=== PATIENT | female | born 1990 | race Caucasian/White ===

== ENCOUNTER 2016-08-20 20:20 | Emergency (ER) | payer OTHER ==
[2016-08-20] MEDS ORDERED: ALBUTEROL SULFATE 2.5 MG/0.5 ML VIAL.NEB IH ONE ×2 (20:51→21:03)
--- NOTE | 2016-08-20 20:58 | ERNOTE ---
Date of Service: 08/20/16 Time Seen by Provider: 08/20/16 20:46 Stated Complaint: SORE THROAT, COUGH Presenting Symptoms:: cough, sore throat, runny nose, fever Source: patient Exam Limitations: no limitations Immunizations: IMMUNIZATION HX Immunizations Up to Date Yes History of Influenza Vaccine No Hx Pneumococcal Vaccination No Allergies/Adverse Reactions: Allergies No Known Allergies Allergy (Verified 08/20/16 20:38) Home Medications: HOME MEDICATIONS FLUoxetine HCL [Prozac] 20 mg PO DAILY 05/21/16 [Last Taken Unknown] LORazepam [Ativan] 0.5 mg PO TID PRN 05/21/16 [Last Taken Unknown] risperiDONE [Risperdal] 1 mg PO BID 05/21/16 [Last Taken Unknown] Albuterol Sulfate [Ventolin Hfa] 2 puff IH Q4H PRN #1 inhaler 08/20/16 [Last Taken Unknown] Doxycycline Monohydrate 100 mg PO BID #20 tablet 08/20/16 [Last Taken Unknown] traZODone HCL [Desyrel] 100 mg PO HS 08/20/16 [Last Taken Unknown] - History of Present Ilness Narrative: Pt. comes in with c/o cough, fever, rhinorrhea, sinus congestion, and chest congestion. Pt. denies any NVD. Pt. does state that she was exposed to pneumonia a week ago by her grandmother and her symptoms started two days ago. Modifying Factors - Improves: Reports: nothing Modifying Factors - Worsens: Reports: nothing Review of Systems - Review of Systems Constitutional: Present: fever, fatigue, malaise. Absent: recent illness EYE: Present: no symptoms reported ENT: Present: ear pain, nose congestion, nasal drainage, sore throat, throat swelling. Absent: nose pain Respiratory: Present: shortness of breath, cough, wheezing Cardiology: Present: no symptoms reported. Absent: chest pain, palpitations, edema Gastrointestinal/Abdominal: Present: no symptoms reported. Absent: nausea, vomiting, diarrhea Genitourinary: Present: no symptoms reported. Absent: frequency, pain, dysuria , decreased urinary output Musculoskeletal: Present: no symptoms reported. Absent: back pain, joint pain Skin: Present: no symptoms reported Neurological: Present: no symptoms reported. Absent: headache, dizziness/light- headedness All Other Systems: All systems neg except as marked - Patient's Past Medical History Patient History - Medical: Anxiety, Depression Patient History - Cancer: No Hx of Cancer Patient History - Surgical Procedures: Appendectomy, Cholecystectomy LMP (females 10-50): unknown - Social History Living Situations: home Smoking Status: Never smoker Alcohol Use: rarely Drug Use: none Physical Exam - Physical Exam General Appearance: Present: wd/wn, alert, no apparent distress Eye Exam: Normal inspection: bilateral, PERRL: bilateral, EOMI: bilateral Ears, Nose, Throat: Present: hearing grossly normal, nasal congestion, sinus pain/drainage, pharyngeal erythema, tonsillar exudate - clear. Absent: abnormal TM (R), abnormal TM (L) Neck: Present: normal inspection, nontender. Absent: lymphadenopathy (R), lymphadenopathy (L) Respiratory: Present: no respiratory distress, no accessory muscle use, chest nontender, decreased breath sounds, wheezing - BUL exp. Absent: crackles, rales , rhonchi, stridor Cardiovascular/Chest: Present: regular rate, rhythm, no murmur, normal peripheral pulses Gastrointestinal/Abdominal: Present: normal bowel sounds, nontender Back Exam: Present: normal inspection Extremity Exam: Present: normal inspection Neurological Exam: Present: alert, oriented, normal mood/affect, no motor/ sensory deficits Skin Exam: Present: warm/dry, pallor ED Progress - Results and Orders Patient's Lab Results:: I have reviewed the patient's lab results. - Vital Signs Patient's Vital Signs:: I have reviewed the patient's vital signs. Vital Signs: Vital Signs 08/20/16 20:35 Temperature 36.9 C Pulse Rate 97 Respiratory 14 Rate Blood Pressure 153/89 O2 Sat by Pulse 96 Oximetry - X-Ray X-Ray #1 X-Ray: chest Interpretation: Interp. by me X-ray Comments: no consolidation, bronchial cuffing noted. - Progress/Reassessment Chief Complaint: Upper Respiratory Symptoms Departure - Departure Clinical Impression: Bronchitis Upper respiratory infection Qualifiers: URI type: unspecified viral URI Qualified Code(s): J06.9 - Acute upper respiratory infection, unspecified Disposition: Home self-care Condition: Good Instructions: Upper Respiratory Infection, Adult, [id number], Acute Bronchitis Additional Instructions: Please follow up with primary provider in 2-3 days Prescriptions: Albuterol Sulfate [Ventolin Hfa] 2 puff IH Q4H PRN #1 inhaler PRN Reason: Shortness Of Breath Doxycycline Monohydrate 100 mg PO BID #20 tablet
[2016-08-20] MEDS ORDERED: DOXYCYCLINE HYCLATE 100 MG TABLET PO ONE (21:36)
[2016-08-20] MEDS ORDERED: DOXYCYCLINE HYCLATE 100 MG TABLET ONE (21:42)
[2016-08-20 22:28] VITALS: BP 147/90
== END 2016-08-20 22:12 | disposition home or self-care (01) ==
LOC: ER 20:20
DX: J40 Bronchitis, not specified as acute or chronic (principal); J06.9 Acute upper respiratory infection, unspecified; B97.89 Other viral agents as the cause of diseases classified elsewhere; F41.9 Anxiety disorder, unspecified; F32.9 Major depressive disorder, single episode, unspecified

== ENCOUNTER 2017-04-23 15:32 | Emergency (ER) | payer OTHER ==
[2017-04-23 15:45] VITALS: BP 121/77
[2017-04-23 16:08] LABS: Urine Bilirubin Negative (NEGATIVE); Urine Blood 250 /ul (NEGATIVE); Urine Ketone Negative (NEGATIVE); Urine Nitrite Negative (NEGATIVE); Urine Protein Negative (NEGATIVE); Urine Urobilinogen Normal (NORMAL)
[2017-04-23 16:15] LABS: Urine Appearance Clear; Urine Bacteria None Seen; Urine Color Yellow; Urine WBC None Seen /hpf (0-5)
--- NOTE | 2017-04-23 16:20 | ERNOTE ---
ER Female HPI Date of Service: 04/23/17 Stated Complaint: UTI Presenting Symptoms: dysuria, other - abd pain Time Seen by Provider: 04/23/17 16:06 Source: patient Exam Limitations: no limitations Immunizations: IMMUNIZATION HX Immunizations Up to Date Yes History of Influenza Vaccine No Hx Pneumococcal Vaccination No Allergies/Adverse Reactions: Allergies No Known Allergies Allergy (Verified 04/23/17 15:45) Home Medications: HOME MEDICATIONS FLUoxetine HCL [Prozac] 20 mg PO DAILY 05/21/16 [Last Taken Unknown] LORazepam [Ativan] 0.5 mg PO TID PRN 05/21/16 [Last Taken Unknown] risperiDONE [Risperdal] 1 mg PO BID 05/21/16 [Last Taken Unknown] traZODone HCL [Desyrel] 100 mg PO HS 08/20/16 [Last Taken Unknown] Lactobacillus 3/Fos/Pantethine [Probiotic & Acidophilus Cap] 1 each PO DAILY # 30 capsule 04/23/17 [Last Taken Unknown] Polyethylene Glycol 3350 [Miralax] 17 gm PO DAILY #2 bottle 04/23/17 [Last Taken Unknown] - History of Present Illness Narrative: Pt. comes in with c/o diffuse upper abdominal discomfort, dysuria, frequency, urgency, and bloating, Pt. denies any fever, SOB, CP, NVD. Pt. states that she has had an appendectomy and a cholecystectomy and she is currently on her period but staes it has been very light and intermittent this month. Pt. denies any alleviating or aggravating factors and denies any prehospital treatment. Review of Systems - Review of Systems Constitutional: Present: no symptoms reported. Absent: recent illness, fever, chills, weakness, fatigue, malaise EYE: Present: no symptoms reported ENT: Present: no symptoms reported Respiratory: Present: no symptoms reported. Absent: shortness of breath, cough , wheezing Cardiology: Present: no symptoms reported. Absent: chest pain, palpitations, edema Gastrointestinal/Abdominal: Present: abdominal pain. Absent: nausea, vomiting, diarrhea, constipation Genitourinary: Present: frequency, dysuria, other - urgency. Absent: hematuria , decreased urinary output, discharge Musculoskeletal: Present: no symptoms reported. Absent: back pain, joint pain Skin: Present: no symptoms reported. Absent: rash, change in color Neurological: Present: no symptoms reported. Absent: headache, dizziness/light- headedness, numbness, tingling All Other Systems: All systems neg except as marked - Patient's Past Medical History Patient History - Medical: Anxiety, Depression Patient History - Cardiac/Respiratory: Hypertension Patient History - Cancer: No Hx of Cancer Patient History - Surgical Procedures: Appendectomy, Cholecystectomy Patient History - Other: None - Social History Living Situations: home Abuse History: No History of abuse Psych History: Hx of Anxiety Alcohol Use: rarely Drug Use: none - Immunizations Immunizations Up to Date: Yes Hx Pneumococcal Vaccination: No History of Influenza Vaccine: No Physical Exam - Physical Exam General Appearance: Present: wd/wn, alert, no apparent distress Head Exam: Present: normal inspection, no evidence of injury Eye Exam: Normal inspection: bilateral, PERRL: bilateral, EOMI: bilateral Ears, Nose, Throat: Present: normal ENT inspection, normal pharynx Neck: Present: normal inspection, nontender. Absent: lymphadenopathy (R), lymphadenopathy (L) Respiratory: Present: no respiratory distress, normal breath sounds, no accessory muscle use, chest nontender, lungs clear Cardiovascular/Chest: Present: regular rate, rhythm, no murmur, normal peripheral pulses Gastrointestinal/Abdominal: Present: normal bowel sounds, no organomegaly, tenderness - diffuse mild upper abd, distended Back Exam: Present: normal inspection, normal range of motion, no CVA tenderness , no vertebral tenderness Extremity Exam: Present: normal inspection, non-tender, normal range of motion, no edema Neurological Exam: Present: alert, oriented, normal mood/affect, no motor/ sensory deficits Skin Exam: Present: normal color, warm/dry. Absent: pallor, skin rash ED Progress - Results and Orders Patient's Lab Results:: I have reviewed the patient's lab results. - Vital Signs Patient's Vital Signs:: I have reviewed the patient's vital signs. Vital Signs: Vital Signs 04/23/17 15:42 Temperature 36.3 C L Pulse Rate 88 Respiratory 12 Rate Blood Pressure 121/77 O2 Sat by Pulse 97 Oximetry - X-Ray X-Ray #1 X-Ray: abdomen Interpretation: Reviewed by me X-ray Comments: severe stool retention - Progress/Reassessment Chief Complaint: Genitourinary Problem Departure Clinical Impression: Constipation Qualifiers: Constipation type: slow transit constipation Qualified Code(s): K59.01 - Slow transit constipation - Departure Disposition: Home self-care Condition: Good Instructions: Constipation, Adult, [id number] Additional Instructions: Please follow up with primary provider in 2-3 days. Please take one bottle of magnesium citrate when you get home and take 1 capful of miralax daily and start taking probiotic capsules daily. Referrals: Abelardo Greenberg MD [Primary Care Provider] - Prescriptions: Lactobacillus 3/Fos/Pantethine [Probiotic & Acidophilus Cap] 1 each PO DAILY # 30 capsule Polyethylene Glycol 3350 [Miralax] 17 gm PO DAILY #2 bottle
[2017-04-23 16:31] LABS: Hematocrit 41.1 % (37.0-47.0); Hemoglobin 14.4 gm/dL (12.5-16.0); Mean Cell Volume 84.7 fl (78-100); Mean Corpuscular Hemoglobin 29.7 pg (27-31); Neutrophil # 4.6 K/mm3 (1.3-6.0); Neutrophil % 65.6 % (42-75.0); Platelet Count 256 K/mm3 (150-450); Red Blood Count 4.85 M/mm3 (4.2-5.4); Red Cell Distribution Width 13.3 % (11.5-14.0)
[2017-04-23 16:46] LABS: Albumin * 3.7 gm/dl (3.4-5.0); Anion Gap 14.2 mmol/L (6.8-13.8); BUN/Creatinine Ratio 12.7 (9.0-21.6); Bilirubin, Total 0.6 mg/dL (0.0-1.1); Ca. Corrected For Albumin 8.6 mg/dL (8.4-10.2); Calcium * 8.7 mg/dL (7.9-10.9); Carbon Dioxide 25.6 mmol/L (24-32.6); Potassium 3.8 mmol/L (3.4-4.6); Total Protein 7.5 gm/dL (6.2-8.2)
[2017-04-23] MEDS ORDERED: MAGNESIUM CITRATE 300 ML BTL ONE (17:23)
[2017-04-23] MEDS ORDERED: MAGNESIUM CITRATE 300 ML BTL PO ONE (17:27)
== END 2017-04-23 17:30 | disposition home or self-care (01) ==
LOC: ER 15:32
DX: K59.01 Slow transit constipation (principal); F41.9 Anxiety disorder, unspecified; F32.9 Major depressive disorder, single episode, unspecified

== ENCOUNTER 2017-05-02 21:24 | Emergency (ER) | payer OTHER ==
[2017-05-02 23:04] VITALS: BP 146/93
[2017-05-02] MEDS ORDERED: KETOROLAC TROMETHAMINE 60 MG/2 ML VIAL IM ONE ×2 (23:04→23:10)
[2017-05-02] MEDS ORDERED: ORPHENADRINE CITRATE 30 MG/ML VIAL IV ONE (23:04)
[2017-05-02] MEDS ORDERED: ORPHENADRINE CITRATE 30 MG/ML VIAL IM ONE (23:09)
[2017-05-02] MEDS ORDERED: ORPHENADRINE CITRATE 30 MG/ML VIAL ONE (23:10)
--- NOTE | 2017-05-02 23:10 | ERNOTE ---
Upper Extremity HPI - General Extremities Pain Location: shoulder: right Time Seen by Provider: 05/02/17 22:55 Source: patient, family Exam Limitations: no limitations - Immun/Allergies/Home Medications Immunizations: IMMUNIZATION HX Immunizations Up to Date Yes History of Influenza Vaccine No Hx Pneumococcal Vaccination No Allergies/Adverse Reactions: Allergies Allergy/AdvReac Type Severity Reaction Status Date / Time No Known Allergies Allergy Verified 04/23/17 15:45 Home Medications: HOME MEDICATIONS FLUoxetine HCL [Prozac] 60 mg PO DAILY 05/21/16 [Last Taken Unknown] LORazepam [Ativan] 1 mg PO TID PRN 05/21/16 [Last Taken Unknown] risperiDONE [Risperdal] 1 mg PO DAILY 05/21/16 [Last Taken Unknown] traZODone HCL [Desyrel] 100 mg PO HS 08/20/16 [Last Taken Unknown] Polyethylene Glycol 3350 [Miralax] 17 gm PO DAILY #2 bottle 04/23/17 [Last Taken Unknown] Nabumetone 750 mg PO BID #20 tablet 05/02/17 [Last Taken Unknown] risperiDONE [Risperidone] 2 mg PO HS 05/02/17 [Last Taken Unknown] tiZANidine HCL [Tizanidine HCl] 2 mg PO QID PRN #20 tablet 05/02/17 [Last Taken Unknown] - History of Present Illness Narrative: pt has had increasing muscle tension over the past week in her neck and right arm/ shoulder Occurred: last week Method of Injury: Reports: no apparent injury Review of Systems - Review of Systems Constitutional: Absent: recent illness EYE: Present: no symptoms reported ENT: Present: no symptoms reported Respiratory: Absent: shortness of breath Gastrointestinal/Abdominal: Absent: nausea, vomiting Musculoskeletal: Present: See HPI Skin: Absent: rash Neurological: Absent: numbness, tingling - Patient's Past Medical History Patient History - Medical: Anxiety, Depression Patient History - Cardiac/Respiratory: Hypertension Patient History - Cancer: No Hx of Cancer Patient History - Surgical Procedures: Appendectomy, Cholecystectomy Patient History - Other: None LMP (females 10-50): 3 weeks - Social History Living Situations: home Abuse History: No History of abuse Psych History: Hx of Anxiety Smoking Status: Never smoker Alcohol Use: rarely Drug Use: none - Immunizations Immunizations Up to Date: Yes Hx Pneumococcal Vaccination: No History of Influenza Vaccine: No Physical Exam - Physical Exam General Appearance: Present: wd/wn, alert, no apparent distress Head Exam: Present: normal inspection, no evidence of injury Neck: Present: limited range of motion, tender lateral - increased paraspinal muscle tension Respiratory: Present: no respiratory distress, no accessory muscle use Cardiovascular/Chest: Present: regular rate, rhythm, no murmur Back Exam: Present: decreased range of motion, muscle spasm - upper trapezius right > left Extremity Exam: Present: decreased range of motion - due to tension Neurological Exam: Present: alert, oriented, normal mood/affect, no motor/ sensory deficits Skin Exam: Present: normal color, warm/dry ED Progress - Vital Signs Patient's Vital Signs:: I have reviewed the patient's vital signs. Vital Signs: Vital Signs 05/02/17 05/02/17 05/02/17 21:24 21:35 22:00 Temperature 37.0 C Pulse Rate 88 91 84 Respiratory 18 Rate Blood Pressure 153/94 135/79 140/88 O2 Sat by Pulse 98 97 97 Oximetry 05/02/17 22:30 Temperature Pulse Rate 80 Respiratory Rate Blood Pressure 141/93 O2 Sat by Pulse 98 Oximetry - Progress/Reassessment Chief Complaint: Upper Extremity Injury/Problem Departure Clinical Impression: Cramp and spasm - Departure Disposition: Home self-care Condition: Good Instructions: Muscle Cramps and Spasms, [id number], Heat Therapy Additional Instructions: warm packs, heating pads or warm baths for 15-20 minutes 2-3 times a day Prescriptions: Nabumetone 750 mg PO BID #20 tablet tiZANidine HCL [Tizanidine HCl] 2 mg PO QID PRN #20 tablet PRN Reason: Spasms
== END 2017-05-02 23:25 | disposition home or self-care (01) ==
LOC: ER 21:24
DX: R25.2 Cramp and spasm (principal); F41.9 Anxiety disorder, unspecified; F32.9 Major depressive disorder, single episode, unspecified

== ENCOUNTER 2019-09-10 07:37 | Observation (INO) ==
[2019-09-10] MEDS ORDERED: diphenhydrAMINE HCL 50 MG/ML VIAL IM ONE (08:17)
[2019-09-10] MEDS ORDERED: PROCHLORPERAZINE EDISYLATE 5 MG/ML VIAL IM ONE (08:17)
[2019-09-10] MEDS ORDERED: DICYCLOMINE HCL 10 MG/ML AMPUL IM ONE (08:30)
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
[2019-09-10 08:37] LABS: Hematocrit 45.7 % (37.0-47.0); Hemoglobin 15.5 gm/dL (12.5-16.0); Mean Cell Volume 85.1 fl (78-100); Mean Corpuscular Hemoglobin 28.9 pg (27-31); Mean Corpuscular Hgb Conc 33.9 g/dl (32-36); Mean Platelet Volume 10.1 fl (8-12.5); Neutrophil # 14.6 K/mm3 (1.3-6.0); Neutrophil % 91.1 % (42-75.0); Platelet Count 243 K/mm3 (150-450); Red Blood Count 5.37 M/mm3 (4.2-5.4); Red Cell Distribution Width 14.4 % (11.5-14.0)
[2019-09-10 08:47] LABS: Anion Gap 17.4 mmol/L (6.8-13.8); BUN/Creatinine Ratio 18.9 (9.0-21.6); Bilirubin, Total 1.2 mg/dL (0.0-1.1); Ca. Corrected For Albumin 8.5 mg/dL (8.4-10.2); Calcium * 8.8 mg/dL (7.9-10.9); Carbon Dioxide 23.3 mmol/L (24-32.6); Potassium 3.7 mmol/L (3.4-4.6); Total Protein 7.9 gm/dL (6.2-8.2)
[2019-09-10] MEDS ORDERED: NORMAL SALINE 1,000 ML IV ONE ×5 (08:56→15:19)
[2019-09-10] MEDS ORDERED: diphenhydrAMINE HCL 50 MG/ML VIAL IV ONE (09:12)
[2019-09-10] MEDS ORDERED: PROCHLORPERAZINE EDISYLATE 5 MG/ML VIAL IV ONE (09:12)
[2019-09-10 10:08] LABS: Urine Bilirubin 1 mg/dl (NEGATIVE); Urine Blood 250 /ul (NEGATIVE); Urine Ketone Large mg/dL (NEGATIVE); Urine Nitrite Negative (NEGATIVE); Urine Protein 15 mg/dL (NEGATIVE); Urine Specific Gravity >=1.030 SP.GR. (1.005-1.010); Urine Urobilinogen Normal (NORMAL); Urine pH 5.5 pH (5.0-7.0)
[2019-09-10 10:16] LABS: Urine Appearance Slightly Cloudy (CLEAR); Urine Bacteria 1+; Urine Color Yellow; Urine WBC 0-5 /hpf (0-5)
[2019-09-10 10:17] LABS: Urine Yeast Few - 1+
[2019-09-10] MEDS ORDERED: DIATRIZOATE MEGLUMINE, SODIUM 30 ML BTL PO ONE (10:34)
[2019-09-10] MEDS ORDERED: ONDANSETRON HCL/PF 2 MG/ML VIAL IV ONE (11:18)
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
[2019-09-10] MEDS ORDERED: ONDANSETRON HCL/PF 2 MG/ML VIAL IV PRN (15:28)
[2019-09-10] MEDS ORDERED: ACETAMINOPHEN 325 MG TABLET PO PRN (15:28)
[2019-09-10] MEDS ORDERED: LOPERAMIDE HCL 2 MG CAPSULE PO PRN (15:29)
[2019-09-10] MEDS ORDERED: LORazepam 1 MG TABLET PO PRN (15:30)
[2019-09-10] MEDS ORDERED: INSULIN GLARGINE,HUM.REC.ANLOG 100 UNITS/ML VIAL SC SCH ×2 (15:30→21:00)
[2019-09-10] MEDS: VENLAFAXINE HCL 150 MG CAP.SR.24H PO SCH (15:48)
[2019-09-10] MEDS: SERTRALINE HCL 100 MG TABLET PO SCH (15:48)
[2019-09-10] MEDS: busPIRone HCL 5 MG TABLET PO SCH (15:48)
[2019-09-10] MEDS: PIOGLITAZONE HCL 15 MG TABLET PO SCH (16:36)
[2019-09-10] MEDS: FAMOTIDINE 20 MG in DEXTROSE 5 % IN WATER 100 ML IV SCH ×4 (16:37→17:20)
[2019-09-10] MEDS: INSULIN LISPRO 100 UNITS/ML VIAL SC SCH (16:50)
[2019-09-10] MEDS: CIPROFLOXACIN IN 5 % DEXTROSE 200 MG/100 ML BAG IV SCH (16:59)
[2019-09-10] MEDS: hydrOXYzine PAMOATE 50 MG CAPSULE PO SCH (22:08)
[2019-09-11] MEDS: CIPROFLOXACIN IN 5 % DEXTROSE 200 MG/100 ML BAG IV SCH (04:22)
[2019-09-11 06:38] LABS: Hematocrit 35.7 % (37.0-47.0); Mean Cell Volume 86.7 fl (78-100); Mean Corpuscular Hemoglobin 29.1 pg (27-31); Mean Corpuscular Hgb Conc 33.6 g/dl (32-36); Mean Platelet Volume 10.2 fl (8-12.5); Neutrophil # 3.3 K/mm3 (1.3-6.0); Neutrophil % 70.5 % (42-75.0); Platelet Count 165 K/mm3 (150-450); Red Blood Count 4.12 M/mm3 (4.2-5.4); Red Cell Distribution Width 14.7 % (11.5-14.0); White Blood Count 4.7 K/mm3 (4.0-10.5)
[2019-09-11 06:52] LABS: ALT 19 U/L (19-67); AST 13 U/L (0-48); Alkaline Phosphatase * 86 U/L (50-170); Anion Gap 10.3 mmol/L (6.8-13.8); BUN/Creatinine Ratio 6.2 (9.0-21.6); Bilirubin, Total 0.9 mg/dL (0.0-1.1); Blood Urea Nitrogen 5 mg/dL (3-23); Calcium * 7.5 mg/dL (7.9-10.9); Carbon Dioxide 27.1 mmol/L (24-32.6); Chloride 104 mmol/L (97-106); Glucose * 129 mg/dL (70-110); Potassium 3.4 mmol/L (3.4-4.6); Sodium 138 mmol/L (132-142)
[2019-09-11] MEDS: INSULIN LISPRO 100 UNITS/ML VIAL SC SCH (07:02)
[2019-09-11] MEDS: FAMOTIDINE 20 MG in DEXTROSE 5 % IN WATER 100 ML IV SCH ×2 (07:12)
[2019-09-11] MEDS: hydrOXYzine PAMOATE 50 MG CAPSULE PO SCH (08:44)
[2019-09-11] MEDS: PIOGLITAZONE HCL 15 MG TABLET PO SCH (08:48)
[2019-09-11] MEDS: busPIRone HCL 5 MG TABLET PO SCH (08:48)
[2019-09-11] MEDS: VENLAFAXINE HCL 150 MG CAP.SR.24H PO SCH (08:49)
[2019-09-11] MEDS: SERTRALINE HCL 100 MG TABLET PO SCH (08:49)
--- NOTE | 2019-09-11 09:33 | DS ---
(1) Uncontrolled diabetes mellitus Problem: Chronic Qualifiers: Diabetes mellitus type: type 1 (2) Morbid obesity due to excess calories Problem: Chronic (3) Severe dehydration Problem: Resolved (4) Ketonemia Problem: Resolved (5) Nausea & vomiting Problem: Resolved (6) Leukocytosis Problem: Resolved (7) Diarrhea Problem: Resolved (8) UTI (urinary tract infection) Problem: Ruled-out Date of Discharge:: 09/11/19 Hospital Course: 28-year-old female admitted for hyperglycemia, ketonemia, nausea and vomiting and dehydration. Was evaluated at bedside and was found to be afebrile and in no acute distress. Patient reports feeling much better and clinically appears better, her weakness has resolved and she has resumed her normal color. Patient's blood sugars are now under control after she was treated with IV hydration and insulin. She received multiple IV boluses of normal saline which resolved her metabolic disorder. She was counseled at bedside this morning about being vigilant and make a greater effort to manage her diabetes. She was told to take her insulin as prescribed and to eat a healthy balance consistent carb diabetic diet. Patient was also instructed to follow-up with her PCP. She reported that she has now resolved her insurance issues and was able to obtain her insulin yesterday and plans to get back on track. Therefore the patient is being discharged home with orders to follow-up with her PCP in 1 week. Procedures Performed: none Plan of Treatment: Resume insulin therapy as prescribed and follow-up with PCP. Results and Findings: Pending Mircobiology Results 09/10/19 Unknown Urine,Clean Catch Urine Culture - Preliminary No Pathogens Isolated Lab Pending Results 09/10/19 08:31: WBC 16.0 H D, RBC 5.37, Hgb 15.5, Hct 45.7, MCV 85.1, MCH 28.9, MCHC 33.9, RDW 14.4 H, Plt Count 243, MPV 10.1, Immature Gran % (Auto) 0.30, Immature Gran # (Auto) 0.04 H, Neutrophils % 91.1 H, Lymphocytes % 4.6 L, Monocytes % 3.7, Eosinophils % 0.2, Basophils % 0.1, Nucleated RBC % 0.0, Neutrophils # 14.6 H, Lymphocytes # 0.73 L, Monocytes # 0.6, Eosinophils # 0.0, Absolute Basophils 0.0 09/10/19 08:31: Sodium 134, Plasma Sodium 137, Potassium 3.7, Chloride 97, Carbon Dioxide 23.3 L, Anion Gap 17.4 H, BUN 17, Creatinine 0.90, Est GFR (Non- Af Amer) 79, BUN/Creatinine Ratio 18.9, Random Glucose 309 H, Calcium 8.8, Calcium Adj for Albumin 8.5, Total Bilirubin 1.2 H, AST 16, ALT 28, Alkaline Phosphatase 111, Total Protein 7.9, Albumin 4.0, Lipase 69 L 09/10/19 08:31: Serum HCG, Qual Negative 09/10/19 08:40: Serum Ketones Positive - 20mg/dl H 09/10/19 09:58: Urine Color Yellow, Urine Appearance Slightly cloudy, Urine pH 5.5, Ur Specific [place] >=1.030, Urine Protein 15 H, Urine Glucose (UA) 500 H, Urine Ketones Large, Urine Blood 250 H, Urine Nitrate Negative, Urine Bilirubin 1 H, Urine Ictotest Negative, Prot Sulfosalicylic Acd Negative, Urine Urobilinogen Normal, Ur Leukocyte Esterase 25 H, Urine RBC 10-25 H, Urine WBC 0- 5, Ur Epithelial Cells 5-10 H, Urine Bacteria 1+ H, Urine Yeast Few - 1+ H, Urine Culture Comments Culture to follow 09/11/19 06:00: Sodium 138, Plasma Sodium 138, Potassium 3.4, Chloride 104, Carbon Dioxide 27.1, Anion Gap 10.3, BUN 5 D, Creatinine 0.81, Est GFR (Non-Af Amer) 89, BUN/Creatinine Ratio 6.2 L, Random Glucose 129 H D, Calcium 7.5 L, Calcium Adj for Albumin 8.0 L, Total Bilirubin 0.9, AST 13, ALT 19, Alkaline Phosphatase 86, Total Protein 6.0 L, Albumin 3.0 L, Serum Ketones Negative 09/11/19 06:35: WBC 4.7 D, RBC 4.12 L, Hgb 12.0 L, Hct 35.7 L, MCV 86.7, MCH 29.1, MCHC 33.6, RDW 14.7 H, Plt Count 165, MPV 10.2, Immature Gran % (Auto) 0.20, Immature Gran # (Auto) 0.01, Neutrophils % 70.5, Lymphocytes % 22.2, Monocytes % 6.0, Eosinophils % 0.9, Basophils % 0.2, Nucleated RBC % 0.0, Neutrophils # 3.3, Lymphocytes # 1.04 L, Monocytes # 0.3, Eosinophils # 0.0, Absolute Basophils 0.0 Discharge Location: Home Disposition: Home self-care Condition: Stable Face to Face Encounter completed per [facility] Guidelines: No Discharge Activity: Activity as tolerated Discharge Diet: Consistent carbs Referrals: Michael Diaz FNP [Primary Care Provider] - Complete Home Medications List: Complete Home Medication List: hydroxyzine pamoate 50 mg capsule 50 mg PO BID 06/09/18 blood sugar diagnostic See Dose Instructions .ROUTE .MEDSUPPLY #100 ea 06/30/18 insulin syringes (disposable) 1 mL See Dose Instructions .ROUTE .MEDSUPPLY #500 ea 07/07/18 Blood-Glucose Meter [Contour Link] 0 ea .ROUTE .MEDSUPPLY 09/17/18 Insulin Lispro [Humalog] 0 - 30 units SQ TID 09/17/18 Lancets 0 ea .ROUTE .MEDSUPPLY 09/17/18 Sertraline HCl [Zoloft] 100 mg PO DAILY 09/17/18 insulin glargine 100 unit/mL (3 mL) subcutaneous pen 58 unit SUBCUT DAILY 05/01/19 lorazepam 0.5 mg tablet 1 mg PO TID PRN tab 05/01/19 venlafaxine 100 mg tablet 150 mg PO DAILY 05/01/19 Buspirone HCl 15 mg PO DAILY 09/10/19 Pioglitazone HCl 15 mg PO DAILY 09/10/19 metFORMIN HCL [Metformin HCl] 1,000 mg PO BID 09/10/19
[2019-09-11 10:19] VITALS: BP 137/95
== END 2019-09-11 10:17 | disposition home or self-care (01) ==
LOC: MS 07:37 → ER 07:37
PROVIDERS: ADMIT Family Medicine; ATTEND Family Medicine
CPT/HCPCS: 36415; 74177; 80053; 81001; 82009; 83690; 84703; 85025; 87086; 96365; 96366; 96372; 96375; 99284; 99285; G0378; J2405; Q9963; Q9967